=== PATIENT | female | born 1925 | race Caucasian/White ===

== ENCOUNTER → 2017-03-01 | Outpatient (CLI) | payer MEDICARE, BC ==
[~2017-03-01] MED LIST: ALTA1.256 PO; ASPI81 PO; CALC500T6 PO; CO Q30CA3 OR; COUM5TAB PO; FISH300C2 PO; FOLIC ACID PO; GLUC500C56 PO; IMDU30TA PO; LORA10TA7 PO; MIRA33502 PO; NITR.4 SL; OMEP20TA OR; PRIMROSE PO; RED600TA OR; SELE200T2 OR; SOTA80TA PO; TAB-TAB PO; VITA-83 OR; VITAMIN B PO; WARF2.5 PO
[2017-03-01 09:55] LABS: HDL CHOLESTEROL 54.9 MG/DL (40.0-60.0); INDIRECT BILIRUBIN 0.7 MG/DL (0.0-0.8); TOTAL BILIRUBIN ADULT 0.9 MG/DL (0.2-1.0)
== END ==
LOC: PLAB 07:52
PROVIDERS: ATTEND Family Medicine
DX: E78.2 Mixed hyperlipidemia (principal); Z79.899 Other long term (current) drug therapy
CPT/HCPCS: 36415; 80061; 80076